=== PATIENT | male | born 1970 | race Caucasian/White ===

== ENCOUNTER → 2022-03-10 | Outpatient (CLI) | payer MEDICARE, OTHER | LOC: US 09:15 | DX: R74.8 Abnormal levels of other serum enzymes (principal); Z90.49 Acquired absence of other specified parts of digestive tract; K83.8 Other specified diseases of biliary tract | CPT/HCPCS: 36415; 76705; 80076 ==

== ENCOUNTER → 2022-03-24 | Outpatient (CLI) | payer MEDICARE, OTHER | LOC: MRI 03-23 08:30 | DX: K83.8 Other specified diseases of biliary tract (principal) | CPT/HCPCS: 74181 ==